=== PATIENT | male | born 2000 | race Caucasian/White ===

== ENCOUNTER 2023-09-14 20:59 | Emergency (ER) | payer OTHER ==
[~2023-09-14] VITALS: Ht 172.7 cm; Wt 93.4 kg
[2023-09-14 21:10] VITALS: BP 145/90; PULSE 97; RESP 14; TEMP 97.9; O2SAT 99
[2023-09-14] MEDS ORDERED: LOTC TP (22:49)
[2023-09-14 23:08] VITALS: BP 145/90; PULSE 97; RESP 14; TEMP 97.9; O2SAT 99
== END 2023-09-14 23:08 | disposition home or self-care (01) ==
LOC: MED 20:59
DX: B09 Unspecified viral infection characterized by skin and mucous membrane lesions (principal); B35.6 Tinea cruris; Z79.899 Other long term (current) drug therapy
CPT/HCPCS: 99282